=== PATIENT | female | born 1955 ===

== ENCOUNTER 2025-04-27 12:41 | Emergency (ER) | payer MEDICARE, SELFPAY ==
[2025-04-27] VITALS (47 sets, daily range): BP systolic 132–191; BP diastolic 67–127; PULSE 88–111; RESP 16–29; TEMP 36.2–37.2; O2SAT 92–100
--- NOTE | ~2025-04-27 | US_ITS ---
EXAMINATION: US venous doppler LE RT DATE: 04/27/2025 14:33 INDICATION: Right lower limb pain and swelling TECHNIQUE: Grayscale ultrasound images without and with compression and Doppler ultrasound images of the right lower extremity veins were obtained. COMPARISON: None. FINDINGS: Noncompressible thrombus is present in the right common femoral vein, profunda (deep) femoral vein, p roximal to distal femoral vein and greater saphenous vein outflow. The right popliteal vein, peroneal trunk, posterior tibial veins, peroneal veins and gastrocnemius vein are patent and compressible. IMPRESSION: 1. Extensive hwlsy-thq-hmcc deep venous thrombosis in the right lower limb involving the entire femor al vein, common femoral vein, profunda (deep) femoral vein and common femoral vein. Dr. Alonso disc ussed these findings with Dr. Brannon at 2:45 PM. Reviewed, dictated and finalized at location A. IMPRESSION: 1. Extensive aknfb-[id number]-kbkb deep venous thrombosis in the right lower limb invo lving the entire femoral vein, common femoral vein, profunda (deep) femoral vei n and common femoral vein. Dr. Alonso discussed these findings with Dr. Adrián cruz at 2:45 PM.
--- NOTE | ~2025-04-27 | CT_ITS ---
EXAMINATION: CT abdomen pelvis w con DATE: 04/27/2025 22:29 INDICATION: Assess for intra-abdominal malignancy TECHNIQUE: Computed tomography (CT) of the abdomen and pelvis was performed with 100 mL Omnipaque-350 intravenous contrast. Automated exposure control and iterative reconstruction technique were employe d. The dose-length product was 412.39 mGy-cm. COMPARISON: None FINDINGS: Discoid atelectasis in the bilateral lower lobes. Cardiomegaly with right atrial enlargement. No hermann cardial or pleural effusion. Small sliding-type hiatal hernia. Liver, gallbladder, spleen, pancreas a nd bilateral adrenal glands are normal. There is mild bilateral hydronephrosis which appears to result from obstruction along the proximal le ft and distal right ureter is resulting from heterogeneously enhancing likely malignant masses in the abdomen and pelvis. This includes and 8.3 x 5.8 x 7.6 cm retroperitoneal mass in the upper abdomen l ikely representing a conglomeration of metastatic left para-aortic and aortocaval lymph nodes. This a ppears to invade,, expands and occluded along with some additional nonenhancing likely bland thrombus the left renal vein. Likely secondary mildly delayed left nephrogram and secondary splenorenal colla teral formation. There also appears to be some extension of the mass along the left gonadal vein. In the pelvis there is enlargement of the uterus with prominent thickening of the endometrial complex wh ich measures 4.6 cm diameter suspicious for endometrial carcinoma. This appears to invade the myometr ium and extend beyond the confines of the uterus at the fundus and the posterior aspect of the uterin e body. The extra uterine or cervical mass measures approximately 9.1 x 6.8 x 4.5 cm. The transition point to the obstructing distal right ureter occurs where it encounters this mass. There is an additi onal separate enhancing mass in the right obturator region which measures 5.1 x 3.5 x 2.8 cm consiste nt with likely metastatic lymphadenopathy. This appears to compress or invade the right external christina c vein which appears to demonstrate nonenhancing central thrombus more distally. Bladder is normal. No bowel obstruction. Normal appendix. No free intraperitoneal gas or fluid. No messina spicious lytic or blastic bone lesions. IMPRESSION: 1. Constellation of findings most suggestive of endometrial carcinoma with extrauterine invasion in t he pelvis and bulky metastatic lymphadenopathy in the right hemipelvis and in the mid abdominal retro peritoneum where it appears to also invaded and occluded the left renal vein with secondary splenoren al collateral formation. 2. Mild bilateral hydronephrosis likely resulting from obstruction from the malignant masses as detai led above. 3. Thrombus within the occluded left renal vein as well as in the right external iliac vein potential ly extending more distally into the femoral veins which begins where the external iliac vein is eithe r elevated or compressed by a large right obturator lymph node. This and the above findings were disc ussed with Dr. Travis at 11:02 PM 4. Cardia megaly. 5. Small sliding-type hiatal hernia. Reviewed, dictated and finalized at location A. IMPRESSION: 1. Constellation of findings most suggestive of endometrial carcinoma with extr auterine invasion in the pelvis and bulky metastatic lymphadenopathy in the rig ht hemipelvis and in the mid abdominal retroperitoneum where it appears to also invaded and occluded the left renal vein with secondary splenorenal collateral formation. 2. Mild bilateral hydronephrosis likely resulting from obstruction from the mal ignant masses as detailed above. 3. Thrombus within the occluded left renal vein as well as in the right externa l iliac vein potentially extending more distally into the femoral veins which b egins where the external iliac vein is either elevated or compressed by a large right obturator lymph node. This and the above findings were discussed with Dr Ivana Travis at 11:02 PM 4. Cardia megaly. 5. Small sliding-type hiatal hernia.
--- NOTE | ~2025-04-27 | XR_ITS ---
EXAM/ PROCEDURE: XR ankle RT min 3V - 04/27/2025 14:32 CDT HISTORY: 70 years old Female with R ankle pain/swelling COMPARISON: None available TECHNIQUE: Four view(s) FINDINGS/ IMPRESSION: Status post ORIF of the distal tibia and fibula. Intact hardware and no loosening. Soft tissue swelli ng around the ankle without subjacent fracture. There are no dislocations.Joint space narrowing, subchondral sclerosis, subchondral cyst formation an d osteophyte formation, compatible with mild osteoarthritis. Reviewed, dictated and finalized at location A.
--- OUTSIDE RECORDS SUMMARY | 2025-04-27 12:44 | XMS_ITS | Referral Summary ---
Author Organization [facility] [address] Address [address] [place] [address] Care Team Providers Care Criminal Lawyer Name Role Phone Dat Brown MD Primary Care Provider [phone] Allergies No known active allergies Medications cholecalciferol (VITAMIN D-3) 5,000 unit capsule Take 5,000 Units by mouth daily Active vitamin E (AQUASOL E) 1,000 unit capsule Take 1,000 Units by mouth daily Patient takes 5000 daily Active vitamin B complex capsule Take 1 capsule by mouth daily Active magnesium oxide (MAG-OX) 250 mg (150.8 mg elemental) tabletIndication s:hypomagnesemia 250 mg daily Active selenium 200 mcg tablet Take by mouth Active potassium gluconate 595 mg (99 mg) tablet 595 mg Activ e memantine (NAMENDA) 10 mg tabletIndication s:Alzheimer's dementia without behavioral disturbance, unspecified timing of dementia onset TAKE 1 TABLET BY MOUTH EVERY DAY 30 tablet 5 10/31/2020 Active Active Problems No known active problems Social History Tobacco Use Types Packs/Day Years Used Date Smoking Tobacco: Never Personal Safety Answer Date Recorded Getting School Help Needed Not on file 12/17 Comments Unknown Sex and Gender Information Value Date Recorded Sex Assigned at Not on file 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
--- OUTSIDE RECORDS SUMMARY | 2025-04-27 12:44 | XMS_ITS | Clinical Summary ---
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
--- NOTE | 2025-04-27 13:35 | ED_ITS ---
HPI - Extremity Injury (Lower) General Chief Complaint: Extremity Injury, Lower <Uzma Brannon APRN - Last Filed: 04/27/25 13:39> Stated Complaint: r ankle injury <Uzma Brannon APRN - Last Filed: 04/27/25 13:39> Time Seen by Provider: 04/27/25 13:25 <Uzma Brannon APRN - Last Filed: 04/27/25 13:39> Focused HPI: Patient is a 70-year-old female who presents to the ER with right ankle and right calf pain/swelling. Her caregiver reports she has a history of multiple sclerosis and dementia, so she is a poor historian and has decreased mobility. Patient's caregiver reports she may have fractured that ankle in the past but denies any recent injury that he is aware of. Patient reports she likes to pick at her skin and she has multiple pencil eraser tip- sized scabs on her right lower extremity. She denies any recent fevers, right knee swelling, urinary symptoms, or purulence drainage from the site. GENERAL: Well-appearing, well-nourished, and in no acute distress. HEAD: Normocephalic, atraumatic. CHEST: Clear to auscultation. ?No respiratory distress. HEART: Regular rate and rhythm.? NEURO: ?Alert and oriented x3. SKIN: multiple pencil eraser tip-sized scabs on her right lower extremity, no visible drainage, + Car's sign, + edema Patient screened in triage and initial orders placed.? ?Additional care and disposition to be based upon?diagnostic testing and treatment. <Uzma Brannon APRN - Last Filed: 04/27/25 13:39> Related Data Allergies/Adverse Reactions: Allergies Allergy/AdvReac Type Severity Reaction Status Date / Time Penicillins Allergy Unknown Anaphylactic Verified 04/27/25 12:43 Shock <Uzma Brannon APRN - Last Filed: 04/27/25 13:39> PMFSH Past Medical History Medical History: Medical History (Updated 04/28/25 @ 01:08 by Kiara Travis MD) Multiple sclerosis Dementia <Uzma Brannon APRN - Last Filed: 04/27/25 13:39> Surgical History Surgical History: Surgical History (Updated 04/27/25 @ 16:08 by Pina Lao APRN) Status post ORIF of fracture of ankle <Uzma Brannon APRN - Last Filed: 04/27/25 13:39> Social History Social History: Social History Smoking status: Never smoker Alcohol intake: never <Uzma Brannon APRN - Last Filed: 04/27/25 13:39> Course Course Emergency Course: Patient signed out to me. I was notified that patient had extensive DVT in the right lower extremity. She was found to have a hemoglobin of 5.8 in received 1 unit of blood at which point her hemoglobin was 6.9 and she received a 2nd unit of blood. She is not on anticoagulation or anti-platelet therapy. She has a history of multiple sclerosis and dementia. Her had reported that she had been experiencing vaginal bleeding 3-4 days per month which he thought was potentially her menstrual cycle although she is [address] Morocho spoke with vascular surgeon as well as accepting physician as patient needs a filter. Patient has been accepted to [facility] in [facility], pending bed. Dr Morocho filled out paperwork. Given anticipated delay in receiving a bed, Dr Morocho also ordered CT abd/pelvis as well as pelvic US (presume the latter will be performed tomorrow morning if still here). I was made aware that patient had received a bed. CT Abd/pelvis was performed but not yet interpreted when EMS arrived. Radiology to push images to hospital and a disc is made by the time EMS has arrived. I did receive a phone call from the radiologist to described extensive concerns for endometrial malignancy as per below. Patient was transported to facility by EMS and I did request to speak with the hospitalist at [facility] and conveyed the findings of the CT abdomen pelvis so that the appropriate consultants (e.g. Gyne Onc, urology) could be made aware in addition to the vascular surgical team that had already been consulted. <Kiara Travis MD - Last Filed: 04/28/25 01:08> Vital Signs Vital signs: Vital Signs Temperature 97.3 F L 04/27/25 13:26 Pulse Rate 92 04/27/25 13:26 Respiratory Rate 16 04/27/25 13:26 Blood Pressure 132/67 04/27/25 13:26 Pulse Oximetry 100 04/27/25 13:26 Oxygen Delivery Room Air 04/27/25 13:26 Temperature 97.9 F 04/27/25 23:30 Pulse Rate 109 H 04/27/25 23:30 Respiratory Rate 23 H 04/27/25 23:30 Blood Pressure 185/98 H 04/27/25 23:30 Pulse Oximetry 94 04/27/25 23:30 Oxygen Delivery Room Air 04/27/25 13:26 <Uzma Brannon, STORE STANDARDS ASSOCIATE - Last Filed: 04/27/25 13:39> Vital Signs Temperature 97.3 F L 04/27/25 13:26 Pulse Rate 92 04/27/25 13:26 Respiratory Rate 16 04/27/25 13:26 Blood Pressure 132/67 04/27/25 13:26 Pulse Oximetry 100 04/27/25 13:26 Oxygen Delivery Room Air 04/27/25 13:26 Temperature 97.9 F 04/27/25 23:30 Pulse Rate 109 H 04/27/25 23:30 Respiratory Rate 23 H 04/27/25 23:30 Blood Pressure 185/98 H 04/27/25 23:30 Pulse Oximetry 94 04/27/25 23:30 Oxygen Delivery Room Air 04/27/25 13:26 <Kiara Travis MD - Last Filed: 04/28/25 01:08> MDM - Extremity Injury (Lower) Lab Data Result diagrams: 04/27/25 21:13 04/27/25 13:47 <Uzma Brannon STORE STANDARDS ASSOCIATE - Last Filed: 04/27/25 13:39> Labs: Lab Results 04/27/25 04/27/25 04/27/25 Range/Units 13:47 16:01 21:13 WBC 6.9 (4.5-10.0) K/mm3 RBC 3.73 L (4.2-5.4) M/mm3 Hgb 5.8 L* 6.9 L* (12.0-15.0) g/dL Hct 22.3 L 24.3 L (37.0-47.0) % MCV 59.8 L (80-100) fl MCH 15.5 L (26-34) pg MCHC 26.0 L (32-36) g/dl RDW 21.1 H (11.5-14.5) % Plt Count 621 H (150-375) k/mm3 MPV 8.1 (7.4-10.4) fl Immature Gran % (Auto) 0.4 (0-0.5) % Neut % (Auto) 78.7 H (45.5-73.1) % Lymph % (Auto) 13.2 L (18.3-44.2) % [place] % (Auto) 6.4 (2.6-8.5) % Eos % (Auto) 0.4 (0-4.4) % Baso % (Auto) 0.9 (0.2-1.2) % Lymph # (Auto) 0.91 (0.9-3.2) K/mm3 [place] # (Auto) 0.4 (0.1-0.6) K/mm3 Eos # (Auto) 0.0 (0-0.3) K/mm3 Baso # (Auto) 0.1 (0.0-0.1) K/mm3 Abs Immat Gran (auto) 0.03 (0.00-0.031) K/mm3 Absolute Neuts (auto) 5.4 (1.3-6.7) K/mm3 Absolute Nucleated RBC 0.000 (0.0-0.012) K/mm3 Band Neutrophils % Not Reportable Nucleated RBC % 0.0 (0.0-0.2) % Platelet Estimate Increased (Adequate) Hypochromasia 3+ Anisocytosis 2+ Target Cells 1+ Schistocytes None seen PT 13.7 (11.1-14.7) Seconds INR 1.1 APTT 35.1 (22.3-36.8) Seconds Sodium 134 L (137-145) mmol/L Potassium 3.3 L (3.4-5.0) mmol/L Chloride 100 (98-107) mmol/L Carbon Dioxide 26 (22-30) mmol/L Anion Gap 8 (4-12) mmol/L BUN 6 L (7-17) mg/dL Creatinine 0.58 L (0.7-1.0) mg/dL Estim Creat Clear Calc Not Reportable Estimated GFR > 60 (59 - ) Glucose 232 H (65-110) mg/dL Lactic Acid 2.5 H 2.4 H (0.7-2.0) mmol/L Calcium 8.5 (8.4-10.2) mg/dL Total Bilirubin 0.3 (0.2-1.3) mg/dL AST 30 (14-36) U/L ALT 14 (6-35) U/L Alkaline Phosphatase 124 (38-126) U/L Total Protein 7.9 (6.3-8.2) g/dL Albumin 3.5 (3.5-5.1) g/dL Blood Type A Positive Antibody Screen Negative Crossmatch See Detail <Uzma Brannon, STORE STANDARDS ASSOCIATE - Last Filed: 04/27/25 13:39> Lab Results 04/27/25 04/27/25 04/27/25 Range/Units 13:47 16:01 21:13 WBC 6.9 (4.5-10.0) K/mm3 RBC 3.73 L (4.2-5.4) M/mm3 Hgb 5.8 L* 6.9 L* (12.0-15.0) g/dL Hct 22.3 L 24.3 L (37.0-47.0) % MCV 59.8 L (80-100) fl MCH 15.5 L (26-34) pg MCHC 26.0 L (32-36) g/dl RDW 21.1 H (11.5-14.5) % Plt Count 621 H (150-375) k/mm3 MPV 8.1 (7.4-10.4) fl Immature Gran % (Auto) 0.4 (0-0.5) % Neut % (Auto) 78.7 H (45.5-73.1) % Lymph % (Auto) 13.2 L (18.3-44.2) % [place] % (Auto) 6.4 (2.6-8.5) % Eos % (Auto) 0.4 (0-4.4) % Baso % (Auto) 0.9 (0.2-1.2) % Lymph # (Auto) 0.91 (0.9-3.2) K/mm3 [place] # (Auto) 0.4 (0.1-0.6) K/mm3 Eos # (Auto) 0.0 (0-0.3) K/mm3 Baso # (Auto) 0.1 (0.0-0.1) K/mm3 Abs Immat Gran (auto) 0.03 (0.00-0.031) K/mm3 Absolute Neuts (auto) 5.4 (1.3-6.7) K/mm3 Absolute Nucleated RBC 0.000 (0.0-0.012) K/mm3 Band Neutrophils % Not Reportable Nucleated RBC % 0.0 (0.0-0.2) % Platelet Estimate Increased (Adequate) Hypochromasia 3+ Anisocytosis 2+ Target Cells 1+ Schistocytes None seen PT 13.7 (11.1-14.7) Seconds INR 1.1 APTT 35.1 (22.3-36.8) Seconds Sodium 134 L (137-145) mmol/L Potassium 3.3 L (3.4-5.0) mmol/L Chloride 100 (98-107) mmol/L Carbon Dioxide 26 (22-30) mmol/L Anion Gap 8 (4-12) mmol/L BUN 6 L (7-17) mg/dL Creatinine 0.58 L (0.7-1.0) mg/dL Estim Creat Clear Calc Not Reportable Estimated GFR > 60 (59 - ) Glucose 232 H (65-110) mg/dL Lactic Acid 2.5 H 2.4 H (0.7-2.0) mmol/L Calcium 8.5 (8.4-10.2) mg/dL Total Bilirubin 0.3 (0.2-1.3) mg/dL AST 30 (14-36) U/L ALT 14 (6-35) U/L Alkaline Phosphatase 124 (38-126) U/L Total Protein 7.9 (6.3-8.2) g/dL Albumin 3.5 (3.5-5.1) g/dL Blood Type A Positive Antibody Screen Negative Crossmatch See Detail <Kiara Travis MD - Last Filed: 04/28/25 01:08> Imaging Data Radiologist's impression: Impressions Venous Doppler Study 04/27/25 14:43 IMPRESSION: 1. Extensive [id number] deep venous thrombosis in the right lower limb involving the entire femoral vein, common femoral vein, profunda (deep) femoral vein and common femoral vein. Dr. Alonso discussed these findings with Dr. Brannon at 2:45 PM. Abdomen/Pelvis CT 04/27/25 22:43 IMPRESSION: 1. Constellation of findings most suggestive of endometrial carcinoma with extrauterine invasion in the pelvis and bulky metastatic lymphadenopathy in the right hemipelvis and in the mid abdominal retroperitoneum where it appears to also invaded and occluded the left renal vein with secondary splenorenal collateral formation. 2. Mild bilateral hydronephrosis likely resulting from obstruction from the malignant masses as detailed above. 3. Thrombus within the occluded left renal vein as well as in the right external iliac vein potentially extending more distally into the femoral veins which begins where the external iliac vein is either elevated or compressed by a large right obturator lymph node. This and the above findings were discussed with Dr. Travis at 11:02 PM 4. Cardia megaly. 5. Small sliding-type hiatal hernia. <Kiara Travis MD - Last Filed: 04/28/25 01:08> Discharge Plan Discharge Clinical Impression: Acute deep vein thrombosis (DVT) of right lower extremity, Anemia, Endometrial carcinoma, Bilateral hydronephrosis, Blood transfusion during current hospitalization <Uzma Brannon APRN - Last Filed: 04/27/25 13:39> Patient Disposition: Acute Care Hospital <Uzma Brannon APRN - Last Filed: 04/27/25 13:39> Condition: Stable <Uzma Brannon APRN - Last Filed: 04/27/25 13:39> Patient Language: Sinhala <Uzma Brannon APRN - Last Filed: 04/27/25 13:39> Follow-up/Referrals: Jeanna Lim, NITIN [Primary Care Provider] - <Uzma Brannon APRN - Last Filed: 04/27/25 13:39>
[2025-04-27 13:57] LABS: Hematocrit 22.3 % (37.0-47.0); Immature Granulocyte Percent A 0.4 % (0-0.5); Lymphocytes Absolute Auto 0.91 K/mm3 (0.9-3.2); Mean Corpuscular HGB Conc 26.0 g/dl (32-36); Mean Corpuscular Hemoglobin 15.5 pg (26-34); Mean Corpuscular Volume 59.8 fl (80-100); Nucleated Red Blood Cells Absolute Auto 0.000 K/mm3 (0.0-0.012); Nucleated Red Blood Cells Perc 0.0 % (0.0-0.2); Platelet Count Result 621 k/mm3 (150-375); Red Blood Count 3.73 M/mm3 (4.2-5.4); White Blood Count 6.9 K/mm3 (4.5-10.0)
[2025-04-27 14:02] LABS: Hemoglobin 5.8 g/dL (12.0-15.0)
[2025-04-27 14:18] LABS: Anisocytosis 2+; Hypochromasia 3+; Schistocytes None Seen; Target Cells 1+
[2025-04-27 14:21] LABS: Alanine Aminotransferase 14 U/L (6-35); Albumin Level 3.5 g/dL (3.5-5.1); Alkaline Phosphatase 124 U/L (38-126); Anion Gap 8 mmol/L (4-12); Aspartate Amino Transferase 30 U/L (14-36); Bilirubin,Total 0.3 mg/dL (0.2-1.3); Blood Urea Nitrogen 6 mg/dL (7-17); Calcium 8.5 mg/dL (8.4-10.2); Carbon Dioxide 26 mmol/L (22-30); Chloride 100 mmol/L (98-107); Estimated Glomerular Filt Rate > 60; Glucose 232 mg/dL (65-110); Potassium 3.3 mmol/L (3.4-5.0); Sodium 134 mmol/L (137-145); Total Protein 7.9 g/dL (6.3-8.2)
--- NOTE | 2025-04-27 15:04 | ED_ITS ---
HPI - Extremity Injury (Lower) General Chief Complaint: Extremity Injury, Lower Stated Complaint: r ankle injury Time Seen by Provider: 04/27/25 13:25 Source: patient History of Present Illness HPI Narrative: Patient is 70 years old came to the ED with pain, swelling of the right lower extremity few days ago. History of MS for the last 50 years, uses a walker, been falling a lot lately, dementia Related Data Allergies Allergy/AdvReac Type Severity Reaction Status Date / Time Penicillins Allergy Unknown Anaphylactic Verified 04/27/25 12:43 Shock Review of Systems 2 Review of Systems: ROS unobtainable: Yes unobtainable due to mental status PMFSH Past Medical History Medical History (Updated 04/29/25 @ 00:00 by Mendel Burgess) Multiple sclerosis Dementia Surgical History Surgical History (Updated 04/27/25 @ 16:08 by Pina Lao, NITIN) Status post ORIF of fracture of ankle Social History Social History Smoking status: Never smoker Alcohol intake: never Exam 2 Narrative: General appearance: Well-developed, well-nourished Skin: Normal color Head: Normocephalic, nontraumatic Eyes: Clear conjunctiva ENT: Oropharynx normal, ears normal, nose normal Neck: Supple, nontender Chest and respiratory: Airway patent, no respiratory distress, no accessory muscle use Heart: Regular rate/rhythm Abdomen: Soft, nontender, no organomegaly, quiet bowel sounds, guaiac negative Pelvic exam showed no blood in the vaginal pouch Vascular: Normal peripheral pulses, normal capillary refill. Musculoskeletal: Right lower extremity showed diffuse tenderness, 2+ edema, scattered bruises Neurologic: Alert and oriented to her name only Course Consultations Consultation #1: Pnia, hospitalist nurse-practitioner believes that patient cannot be taking care of at this hospital. Date: 04/27/25 Consultation #2: DR FIGUEROA, VASCULAR SURGEON AT [facility] WHO ACCEPTED PATIENT TRANSFER Date: 04/27/25 Time: 16:57 Consultation #3: DR CHENG, HOSPITALIST AT [facility], WOULD LIKE TO SEE IMPROVEMENT OF THE HEMOGLOBIN LEVEL AFTER BLOOD TRANSFUSION BEFORE ACCEPTING PATIENT TRANSFER. Date: 04/27/25 Time: 17:04 Additional Consultation(s): DR MERLOS, HOSPITALIST AT [facility], ACCEPTED PATIENT TRANSFER, WAITING FOR A BED Vital Signs Vital signs: Vital Signs Temperature 36.3 C L 04/27/25 13:26 Pulse Rate 92 04/27/25 13:26 Respiratory Rate 16 04/27/25 13:26 Blood Pressure 132/67 04/27/25 13:26 Pulse Oximetry 100 04/27/25 13:26 Oxygen Delivery Room Air 04/27/25 13:26 Temperature 36.6 C 04/27/25 23:30 Pulse Rate 109 H 04/27/25 23:30 Respiratory Rate 23 H 04/27/25 23:30 Blood Pressure 185/98 H 04/27/25 23:30 Pulse Oximetry 94 04/27/25 23:30 Oxygen Delivery Room Air 04/27/25 13:26 MDM - Extremity Injury (Lower) MDM Narrative Medical decision making narrative: Patient came with right lower extremity swelling and pain Venous Doppler right lower extremity today showed extensive above the knee deep vein thrombosis in the right lower extremity involving the entire femoral vein, common femoral vein, profound the femoral vein and common femoral vein. Patient is not on any blood thinner at this time BLOOD WORKUP TODAY SHOWED HEMOGLOBIN OF 5.8, MCV 59.8, PLATELET 621 ANTICOAGULANT MEDICATION CANNOT BE STARTED AT THIS TIME. INFERIOR VENA CAVA FILTER PLACEMENT IS MY RECOMMENDATION, HOSPITALIST NURSE-PRACTITIONER PREFERRED TO TRANSFER PATIENT TO ANOTHER FACILITY FOR VASCULAR SURGERY CONSULT PATIENT IS ACCEPTED TO BE TRANSFERRED TO [facility] DISCUSSED WITH THE VASCULAR SURGEON DR. FIGUEROA, THE HOSPITALIST . WAITING FOR A BED. PATIENT CARE TURNED OVER TO DR. PIMENTEL AT SHIFT CHANGE, AWAITING IMAGING, DISPOSITION. PATIENT BEEN RESTING QUIETLY IN THE EMERGENCY ROOM WITHOUT ANY ISSUES OR PROBLEMS. Because of the delay of transferred to another facility, CT abdomen and pelvis with IV contrast ordered to rule out the possibility of intra-abdominal malignancy Pelvic ultrasound order to rule out intrauterine malignancy Differential Diagnosis Differential diagnosis: Likely other ( as above) Medical Records Attestation: I reviewed the patient's medical records. Lab Data Attestation: I reviewed the patient's lab results. 04/27/25 21:13 04/27/25 13:47 Labs: Lab Results 04/27/25 04/27/25 04/27/25 Range/Units 13:47 16:01 21:13 WBC 6.9 (4.5-10.0) K/mm3 RBC 3.73 L (4.2-5.4) M/mm3 Hgb 5.8 L* 6.9 L* (12.0-15.0) g/dL Hct 22.3 L 24.3 L (37.0-47.0) % MCV 59.8 L (80-100) fl MCH 15.5 L (26-34) pg MCHC 26.0 L (32-36) g/dl RDW 21.1 H (11.5-14.5) % Plt Count 621 H (150-375) k/mm3 MPV 8.1 (7.4-10.4) fl Immature Gran % (Auto) 0.4 (0-0.5) % Neut % (Auto) 78.7 H (45.5-73.1) % Lymph % (Auto) 13.2 L (18.3-44.2) % [place] % (Auto) 6.4 (2.6-8.5) % Eos % (Auto) 0.4 (0-4.4) % Baso % (Auto) 0.9 (0.2-1.2) % Lymph # (Auto) 0.91 (0.9-3.2) K/mm3 [place] # (Auto) 0.4 (0.1-0.6) K/mm3 Eos # (Auto) 0.0 (0-0.3) K/mm3 Baso # (Auto) 0.1 (0.0-0.1) K/mm3 Abs Immat Gran (auto) 0.03 (0.00-0.031) K/mm3 Absolute Neuts (auto) 5.4 (1.3-6.7) K/mm3 Absolute Nucleated RBC 0.000 (0.0-0.012) K/mm3 Band Neutrophils % Not Reportable Nucleated RBC % 0.0 (0.0-0.2) % Platelet Estimate Increased (Adequate) Hypochromasia 3+ Anisocytosis 2+ Target Cells 1+ Schistocytes None seen PT 13.7 (11.1-14.7) Seconds INR 1.1 APTT 35.1 (22.3-36.8) Seconds Sodium 134 L (137-145) mmol/L Potassium 3.3 L (3.4-5.0) mmol/L Chloride 100 (98-107) mmol/L Carbon Dioxide 26 (22-30) mmol/L Anion Gap 8 (4-12) mmol/L BUN 6 L (7-17) mg/dL Creatinine 0.58 L (0.7-1.0) mg/dL Estim Creat Clear Calc Not Reportable Estimated GFR > 60 (59 - ) Glucose 232 H (65-110) mg/dL Lactic Acid 2.5 H 2.4 H (0.7-2.0) mmol/L Calcium 8.5 (8.4-10.2) mg/dL Total Bilirubin 0.3 (0.2-1.3) mg/dL AST 30 (14-36) U/L ALT 14 (6-35) U/L Alkaline Phosphatase 124 (38-126) U/L Total Protein 7.9 (6.3-8.2) g/dL Albumin 3.5 (3.5-5.1) g/dL Blood Type A Positive Antibody Screen Negative Crossmatch See Detail Imaging Data Radiologist's impression: Impressions Venous Doppler Study 04/27/25 14:43 IMPRESSION: 1. Extensive [id number] deep venous thrombosis in the right lower limb involving the entire femoral vein, common femoral vein, profunda (deep) femoral vein and common femoral vein. Dr. Alonso discussed these findings with Dr. Brannon at 2:45 PM. Critical Care Time Critical Care Time Critical Care Time: Yes Total Critical Care Time: 30 Discharge Plan Discharge Clinical Impression: Acute deep vein thrombosis (DVT) of right lower extremity, Anemia, Endometrial carcinoma, Bilateral hydronephrosis, Blood transfusion during current hospitalization Patient Disposition: Acute Care Hospital Condition: Stable Patient Language: Chadian Follow-up/Referrals: Jeanna Lim, NITIN [Primary Care Provider] -
[2025-04-27 15:18] LABS: INR 1.1; Partial Thromboplastin Time 35.1 Seconds (22.3-36.8); Prothrombin Time 13.7 Seconds (11.1-14.7)
--- OUTSIDE RECORDS SUMMARY | 2025-04-27 15:32 | XMS_ITS | Referral Summary ---
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
--- OUTSIDE RECORDS SUMMARY | 2025-04-27 15:32 | XMS_ITS | Clinical Summary ---
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
--- NOTE | 2025-04-27 16:01 | PC.NURSE ---
per Dr Morocho - hold heparin d/t hemoglobin level.
--- NOTE | 2025-04-27 16:03 | PM.IMHP ---
H&P: HPI History of Present Illness Date/Time: 04/27/25 16:03 Chief Complaint: Right lower extremity pain and swelling Narrative: 70-year-old female history of MS and dementia presents to the hospital with right lower extremity pain and swelling. Lab work in the ED shows hemoglobin of 5.8, sodium 134, potassium of 3.3, BUN of 6, creatinine of 0.58, glucose of 232, lactic acid of 2.5, venous Doppler shows extensive [id number]-vhz-yeyg deep venous thrombosis in the right lower limb involving the entire femoral vein, common femoral vein, profunda (deep) femoral vein and common femoral vein. 2 units RBCs and heparin drip for for the patient. Review of Systems Review of Systems: ROS unobtainable: Yes unobtainable due to mental status PMFSH Past Medical History Medical History (Updated 04/27/25 @ 16:11 by Pina Lao APRN) Multiple sclerosis Dementia Surgical History Surgical History (Updated 04/27/25 @ 16:08 by Pina Lao APRN) Status post ORIF of fracture of ankle Social History Social History Smoking status: Never smoker Alcohol intake: never Meds Home Medications and Allergies Allergies Allergy/AdvReac Type Severity Reaction Status Date / Time Penicillins Allergy Unknown Anaphylactic Verified 04/27/25 12:43 Shock Vital Signs Vital Signs - 24 hr 04/27/25 13:26 Temperature 97.3 F L Pulse Rate 92 Respiratory Rate 16 Blood Pressure 132/67 Pulse Oximetry 100 Oxygen Delivery Room Air Exam Narrative: General: well appearing, appears stated age. HEENT: normocephalic, atraumatic. Mucous membranes moist. EOMI, PERRLA, bilateral sclera anicteric, no conjunctival injection. Neck supple without JVD, lymphadenopathy, or bruit. Respiratory: clear to ascultation bilaterally. No rales/rhonic/wheezes. Cardiovascular: Regular rate and rhythm, normal S1-S2 upon ascultation. No murmurs, rubs, or clicks. PMI is nondisplaced, capillary refill less than 3 second. Abdomen: Soft, round, no pulsatile masses, nondistended and nontender. No rebound, no guarding. No CVA tenderness, no hepatosplenomegaly. Bowel sounds present to all four quadrants. No high pitch or tinkling sounds, resonant to percussion. Extremities: No cyanosis, clubbing, or edema present. Pulses are palpable 2/2. Right lower extremity Neuro: Alert and orientated x 4. PERRLA. Cranial nerves 2-12 intact without focal deficit. Skin: Warm, dry, and intact, without rash, erythema, or lesion. Psych: pleasant, cooperative, normal speech, normal affect, no hallucinations, no dysarthia H&P: Results Labs Labs: Short CBC 04/27/25 Range/Units 13:47 WBC 6.9 (4.5-10.0) K/mm3 Hgb 5.8 L* (12.0-15.0) g/dL Hct 22.3 L (37.0-47.0) % Plt Count 621 H (150-375) k/mm3 BMP 04/27/25 13:47 Sodium 134 L Potassium 3.3 L Chloride 100 Carbon Dioxide 26 BUN 6 L Creatinine 0.58 L Glucose 232 H Calcium 8.5 Liver Function 04/27/25 Range/Units 13:47 Total Bilirubin 0.3 (0.2-1.3) mg/dL AST 30 (14-36) U/L ALT 14 (6-35) U/L Alkaline Phosphatase 124 (38-126) U/L Albumin 3.5 (3.5-5.1) g/dL Assessment and Plan Assessment and plan (1) Acute deep vein thrombosis (DVT) of right lower extremity: Code(s): I82.401 - Acute embolism and thrombosis of unspecified deep veins of right lower extremity Status: Acute Assessment and Plan: Heparin drip per protocol (2) Anemia: Code(s): D64.9 - Anemia, unspecified Status: Acute Assessment and Plan: 5.8 on admission Transfuse 2 units RBCs H&H q.6 Transfuse for hemoglobin less than 7 or symptomatic (3) Multiple sclerosis: Code(s): G35 - Multiple sclerosis Status: Acute (4) Dementia: Code(s): F03.90 - Unspecified dementia, unspecified severity, without behavioral disturbance, psychotic disturbance, mood disturbance, and anxiety Status: Acute (5) Hypertension: Code(s): I10 - Essential (primary) hypertension Status: Acute Assessment and Plan: Hydralazine p.r.n.
--- NOTE | 2025-04-27 17:54 | PC.NURSE ---
verbal phone consent recieved by Alvin Lee- patients sibling along with Yen Mendoza RN.
[2025-04-27] MEDS: SODIUM CHLORIDE 0.9% IV 250 ML 30 ML IV CONT (18:46)
[2025-04-27 21:16] LABS: Hematocrit 24.3 % (37.0-47.0)
[2025-04-27 21:26] LABS: Hemoglobin 6.9 g/dL (12.0-15.0)
--- NOTE | 2025-04-27 22:24 | PC.NURSE ---
Sade RN @ [facility] on [address] Pt accepting information: [facility] [address] [place] [address] Gomes Diagnosis : Right Leg DVT RN to RN Report : [phone] attache # [phone]
--- NOTE | 2025-04-27 22:38 | PC.NURSE ---
bed changed to 367
--- NOTE | 2025-04-27 23:14 | PC.NURSE ---
2nd unit of blood transfusion started with ZANE Frank prior to transfer of Pt.
[2025-04-27] MEDS: TUBING, BLOOD SET 1 EACH XX (23:19)
[2025-04-27] MEDS: SODIUM CHLORIDE 0.9% IV 250 ML 100 ML (23:20)
--- NOTE | 2025-04-27 23:20 | PC.NURSE ---
blood transfusing at time of transfer.
--- NOTE | 2025-05-01 20:14 | PC.NURSE ---
blood transfusion started 04/27/2025 @ 2314. VS Saved, but co-sign and start did not save
== END 2025-04-27 23:32 | disposition short-term general hospital (02) ==
PROVIDERS: Emergency Medicine; Registered Nurse; Emergency Provider Student in an Organized Health Care Education/Training Program; PCP Nurse Practitioner Family
DX: I82.411 Acute embolism and thrombosis of right femoral vein (principal); D64.9 Anemia, unspecified; C54.1 Malignant neoplasm of endometrium; N13.30 Unspecified hydronephrosis; G35 Multiple sclerosis; F03.90 Unspecified dementia, unspecified severity, without behavioral disturbance, psychotic disturbance, mood disturbance, and anxiety
CPT/HCPCS: 36415; 36430; 73610; 74177; 80053; 83605; 85014; 85018; 85025; 85610; 85730; 86850; 86900; 86901; 86923; 93971; 96361; 96374; 96375; 99285; J7050; P9016; Q9967

== ENCOUNTER 2025-06-27 03:27 | Emergency (ER) | payer MEDICARE, SELFPAY ==
[2025-06-27] VITALS (98 sets, daily range): BP systolic 83–158; BP diastolic 41–105; PULSE 96–115; RESP 9–30; TEMP 33.3–37.3; O2SAT 84–100
--- NOTE | ~2025-06-27 | XR_ITS ---
Examination: XR chest 1V portable Clinical History: gurgling Comparison: 11/14/2018 Technique: Portable AP Findings: Right chest Mediport. Heart size normal. Large left effusion, associated basilar opacity. No acute bony abnormality. IMPRESSION: 1. Large left pleural effusion, with associated basilar atelectasis and/or airspace disease. Reviewed, dictated and finalized at location R. IMPRESSION: 1. Large left pleural effusion, with associated basilar atelectasis and/or air space disease.
--- NOTE | ~2025-06-27 | CT_ITS ---
CT HEAD NON-CONTRAST Clinical History: AMS Comparison: None Technique: Unenhanced axial images skull base to vertex Coronal, sagittal reformats CT images acquired with automatic exposure control for dose reduction DLP: 757 mGy-cm Findings: Mild global atrophy. White matter changes, typically chronic microvascular ischemic disease Sulci, ventricles: Ventricles dilated out of proportion to sulci. No intracerebral hemorrhage. No evidence acute territorial infarct. No mass effect, midline shift. Bony calvarium intact. Visualized paranasal sinuses: Ethmoid disease. Mastoid air cells: Clear. IMPRESSION: 1. No acute intracranial findings. 2. Ventriculomegaly. Normal pressure hydrocephalus not excluded. Reviewed, dictated and finalized at location R.
--- NOTE | ~2025-06-27 | XR_ITS ---
Abdominal radiograph(s) INDICATION: OG tube COMPARISON: CT abdomen pelvis 04/27/2025 TECHNIQUE: Portable supine AP abdomen FINDINGS: NG tube within gastric body. Gaseous gastric distention. Scattered colonic gas and stool. Mild scattered small bowel gas. No abnormal abdominal calcifications. No acute bony abnormality. IMPRESSION: 1. NG tube within stomach. Reviewed, dictated and finalized at location . IMPRESSION: 1. NG tube within stomach.
--- NOTE | ~2025-06-27 | XR_ITS ---
Examination: XR chest ET placement Clinical History: ET TUE PLACEMENT Comparison: 1 hour prior Technique: Portable AP Findings: ET tube tip at nic. NG tube. Right chest Mediport. Heart size unchanged. Worsening diffuse airspace opacities. Large left effusion persists. No acute bony abnormality. IMPRESSION: 1. ET tube tip at nic. 2. Developing pulmonary edema and/or multifocal airspace disease. 3. Persistent large left pleural effusion. Reviewed, dictated and finalized at location R.
--- NOTE | ~2025-06-27 | XR_ITS ---
Examination: XR chest ET placement Clinical History: ET TUBE REPOSISITIONED Comparison: Minutes prior Technique: Portable AP Findings: ET tube tip above nic. Right chest Mediport. Heart size unchanged. Left pleural effusion with associated basilar opacity. No acute bony abnormality. IMPRESSION: 1. ET tube tip above nic. 2. No cardiopulmonary change. Reviewed, dictated and finalized at location R.
--- NOTE | ~2025-06-27 | CT_ITS ---
EXAMINATION: CTA chest PE abdomen pel DATE: 06/27/2025 06:49 INDICATION: Gastrointestinal hemorrhage. TECHNIQUE: Computed tomography angiography (CTA) of the chest was performed with 100 mL Omnipaque-350 intravenous contrast timed to evaluate the pulmonary arteries. Coronal maximum intensity projection 3D-reconstructions were created by the technologist. Computed tomography (CT) of the abdomen and pelvis was performed with intravenous contrast. Automated exposure control and iterative reconstruction technique were employed. The dose-length product was 685.34 mGy-cm. COMPARISON: CT abdomen and pelvis 04/27/2025 FINDINGS: CTA chest: There are small right and moderate-sized left pleural effusions. There is atelectasis bilaterally with a dependent predominance. There is smooth septal thickening in the lungs, consistent with pulmonary edema. Cardiomegaly is noted. No pericardial effusion. There are pulmonary emboli in the lower lobes. The endotracheal tube tip is in expected position. There is a right internal jugular port with tip in superior vena cava. The nasogastric tube tip is in the stomach. There is moderate thoracic spondylosis. There are chronic compression fractures of T6 and T7. CT abdomen and pelvis: The liver is normal. There is a gallstone in the gallbladder, which is normal in size. Calcifications in the spleen are consistent with old granulomatous disease. The pancreas and right adrenal gland are normal. There is moderate right hydronephrosis and hydroureter. There is mil d left hydronephrosis. There is a 11.9 x 9.3 cm mass involving the endometrium with extrauterine spread. There is right external iliac lymphadenopathy. There is confluent aortocaval and left para-aortic lymphadenopathy. For example, a left para-aortic jean-paul mass measures 7.4 x 6.0 cm. Left para-aortic lymphadenopathy involves the left adrenal gland and hilum of the left kidney. There is a small volume of ascites. There is edema of the body wall and intra- abdominal fat. There is a left groin catheter with tip in left external iliac vein. There is deep vein thrombosis in right common femoral vein. There is a mass with rim calcifications and rim enhancement in the left hip adductor muscles, likely a subacute hematoma. There are chronic compression fractures of L1 and L2. There are lytic lesions in L2 and S2. IMPRESSION: 1. Acute pulmonary emboli in the lower lobes. Deep vein thrombosis in right common femoral vein. 2. Mild pulmonary edema. 3. Small right and moderate-sized left pleural effusions. 4. Large endometrial mass, abdominal and retroperitoneal lymphadenopathy with involvement of left adrenal gland and hilum of left kidney, and bone lesions, consistent with endometrial carcinoma and metastatic disease. 5. Moderate right hydronephrosis and hydroureter and mild left hydronephrosis secondary to metastatic disease. 6. Mass with rim calcifications and rim enhancement in the left hip adductor muscles, likely a subcutaneous hematoma. Reviewed, dictated and finalized at location E. IMPRESSION: 1. Acute pulmonary emboli in the lower lobes. Deep vein thrombosis in right com mon femoral vein. 2. Mild pulmonary edema. 3. Small right and moderate-sized left pleural effusions. 4. Large endometrial mass, abdominal and retroperitoneal lymphadenopathy with i nvolvement of left adrenal gland and hilum of left kidney, and bone lesions, co nsistent with endometrial carcinoma and metastatic disease. 5. Moderate right hydronephrosis and hydroureter and mild left hydronephrosis s econdary to metastatic disease. 6. Mass with rim calcifications and rim enhancement in the left hip adductor mu scles, likely a subcutaneous hematoma.
--- NOTE | 2025-06-27 03:28 | ECG_ITS ---
Test Date: 2025-06-27 04:09:28 Measurements Intervals [place] Rate: 105 P: 79 SC: 124 QRS: 23 QRSD: 83 T: 0 QT: 358 QTc: 473 Interpretive Statements SINUS TACHYCARDIA NONSPECIFIC T-WAVE ABNORMALITY BORDERLINE ECG No previous ECG available for comparison Electronically Signed On 06-27-2025 07:37:12 CDT by Scar Pleitez M.D.
--- NOTE | 2025-06-27 03:35 | PC.NURSE ---
pt audibly gurgling, brother to bedside. Pt full code.
--- NOTE | 2025-06-27 03:52 | PC.NURSE ---
pt arrived with wounds to right [place]eg[place], left hip, and right lower thigh.
[2025-06-27 03:54] LABS: Immature Granulocyte Percent A 3.2 % (0-0.5); Lymphocytes Absolute Auto 1.79 K/mm3 (0.9-3.2); Mean Corpuscular HGB Conc 28.7 g/dl (32-36); Mean Corpuscular Hemoglobin 21.4 pg (26-34); Mean Corpuscular Volume 74.6 fl (80-100); Nucleated Red Blood Cells Absolute Auto 0.100 K/mm3 (0.0-0.012); Nucleated Red Blood Cells Perc 3.2 % (0.0-0.2); Platelet Count Result 450 k/mm3 (150-375); Red Blood Count 2.80 M/mm3 (4.2-5.4); White Blood Count 3.2 K/mm3 (4.5-10.0)
[2025-06-27 03:57] LABS: Alveolar/Arterial O2 Gradient 240.2 mmHg; Carboxyhemoglobin 1.0 % THb (0-2.0); Fractional Inspired Oxygen 50 %; HCO3 ABG 18.7 mEq/l (22.0-26.0); Methemoglobin ABG 0.9 %THb (0-1.5); Oxygen Content ABG 7.5 %vol (16.0-22.0); Oxygen Saturation ABG 90.7 % (95.0-100.0); PCO2 ABG 43.0 mmHg (35.0-45.0); PO2 ABG 67.9 mmHg (80.0-100.0); PO2 FiO2 Ratio Arterial Blood 1.36 %; Reduced Hemoglobin 12.3 %THb (0-5.0)
[2025-06-27 04:02] LABS: Liters per Minute 15.0 LPM; Modified Allen's Test Pass; Site Drawn RIGHT RADIAL
[2025-06-27 04:07] LABS: INR 1.4; Prothrombin Time 17.5 Seconds (11.1-14.7)
[2025-06-27 04:08] LABS: Partial Thromboplastin Time 41.8 Seconds (22.3-36.8)
[2025-06-27 04:13] LABS: Alanine Aminotransferase 24 U/L (6-35); Albumin Level 2.7 g/dL (3.5-5.1); Alkaline Phosphatase 143 U/L (38-126); Anion Gap 11 mmol/L (4-12); Aspartate Amino Transferase 22 U/L (14-36); Bilirubin,Total 0.3 mg/dL (0.2-1.3); Blood Urea Nitrogen 26 mg/dL (7-17); Calcium 8.1 mg/dL (8.4-10.2); Carbon Dioxide 22 mmol/L (22-30); Chloride 95 mmol/L (98-107); Estimated CRCL calculation 62 ml/min; Estimated Glomerular Filt Rate > 60; Glucose 353 mg/dL (65-110); Magnesium 1.9 mg/dL (1.6-2.3); Potassium 4.2 mmol/L (3.4-5.0); Sodium 128 mmol/L (137-145); Total Protein 5.8 g/dL (6.3-8.2)
[2025-06-27 04:21] LABS: CRP 16.5 mg/dL (<1.0); NT Pro B Type Natriuretic Pept 2650 pg/mL (19.9-100)
[2025-06-27] MEDS: NOREPINEPHRINE 8 MG/D5W 250 ML 8 MG/250 ML BAG 9.38 MG IV CONT (04:22)
[2025-06-27] MEDS: HYDROCORTISONE SODIUM SUCCINATE 100 MG/2 ML VIAL IV PUSH (04:23)
[2025-06-27 04:29] LABS: Hematocrit 20.9 % (37.0-47.0); Hemoglobin 6.0 g/dL (12.0-15.0)
[2025-06-27 04:31] LABS: Anisocytosis 1+; Hypochromasia 2+; Poikilocytosis 1+
[2025-06-27 04:32] LABS: Ovalocytes 1+; Schistocytes None Seen; Target Cells Occasional
[2025-06-27] MEDS: PANTOPRAZOLE SODIUM IV 40 MG VIAL 80 MG IV PUSH (04:44)
[2025-06-27 04:45] LABS: Influenza A QL RT-PCR Negative (Negative); Influenza B QL RT-PCR Negative (Negative); RSV RNA, RT-PCR Negative (Negative); SARS-CoV-2 RNA PCR Negative (Negative)
--- NOTE | 2025-06-27 04:48 | PC.NURSE ---
pt as temperature Rico in. pt core temperature was 93.0F
[2025-06-27] MEDS: FENTANYL 2,500MCG/NS250ML(*CRX 2,500 MCG/250 ML BAG (04:56)
[2025-06-27] MEDS: RAPID SEQUENCE INTUBATION KIT 1 EACH (04:59)
[2025-06-27] MEDS: LACTATED RINGERS 1,000 ML 999 ML IV CONT ×3 (05:00)
--- NOTE | 2025-06-27 05:10 | PC.NURSE ---
etomidate given at 0426 succinylcholine given at 0427 intubation tube is 25 at the lip OG tube is 62 at the teeth
[2025-06-27 05:14] LABS: Alveolar/Arterial O2 Gradient 476.9 mmHg; Carboxyhemoglobin 1.6 % THb (0-2.0); Fractional Inspired Oxygen 100 %; HCO3 ABG 21.9 mEq/l (22.0-26.0); Methemoglobin ABG 0.8 %THb (0-1.5); Oxygen Content ABG 8.1 %vol (16.0-22.0); Oxygen Saturation ABG 98.9 % (95.0-100.0); PCO2 ABG 55.3 mmHg (35.0-45.0); PO2 ABG 180.8 mmHg (80.0-100.0); PO2 FiO2 Ratio Arterial Blood 1.81 %; Reduced Hemoglobin 0.8 %THb (0-5.0)
[2025-06-27 05:18] LABS: Arterial Blood Gas Ventilator rate 20 /MIN; Modified Allen's Test Pass; Site Drawn RIGHT RADIAL
[2025-06-27 05:19] LABS: Arterial Blood Gas Tidal Volume 400 ml
[2025-06-27] MEDS: levoFLOXacin 750 MG/D5W 150 ML 750 MG/150 ML BAG 100 MG IVPB (05:28)
[2025-06-27 05:38] LABS: Add Urine Microscopic? YES; Appearance Urine Turbid (Clear); Glucose Urine UA Negative (Negative); Leukocyte Esterase Ur 3+ LEU/UL (Negative); Need Manual Microscopic Reviewed; Nitrate Urine Negative (Negative); Non Pathogenic Casts >20; Specific Grav Ur 1.015 (1.001-1.035)
--- NOTE | 2025-06-27 06:05 | PC.NURSE ---
Per EDP to do 2 PRBC at the same time. pt hemoglobin 5.6 per ABG.
--- NOTE | 2025-06-27 06:19 | ED.AMS ---
HPI - Altered Mental Status General Chief Complaint: Altered Mental Status <Davis Salazar MD - Last Filed: 06/28/25 05:27> Stated Complaint: AMS <Davis Salazar MD - Last Filed: 06/28/25 05:27> Time Seen by Provider: 06/27/25 04:59 <Davis Salazar MD - Last Filed: 06/28/25 05:27> History of Present Illness HPI narrative: 70-year-old female with a past medical history including dementia multiple sclerosis with recent workup for ongoing endometrial malignancy that she is getting active chemotherapy and treatments for at the [facility] most recently [facility] last month. 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 Her family member cleaning her brothers providing the majority of collateral formation is patient presents in respiratory extremis and altered mental status. Noted to be profoundly hypotensive, hypothermic, hypoxic. Placed into room 2 for evaluation and resuscitation immediately. Patient is full code per family. Patient not able to provide history or meaningful ROS given mental status and physical presentation. <Davis Salazar MD - Last Filed: 06/28/25 05:27> Related Data Home Medications: Home Medications ?Medication ?Instructions ?Recorded ?Confirmed ?Last Taken ?Type acetaminophen 325 mg capsule 325 mg PO Q6H PRN 05/14/25 05/14/25 Unknown History apixaban 5 mg tablet (Eliquis) 5 mg PO BID 05/14/25 05/14/25 Unknown History ferrous sulfate 325 mg (65 mg 325 mg PO DAILY 05/14/25 05/14/25 Unknown History iron) tablet <Davis Salazar MD - Last Filed: 06/28/25 05:27> Allergies/Adverse Reactions: Allergies Allergy/AdvReac Type Severity Reaction Status Date / Time Penicillins Allergy Unknown Anaphylactic Verified 06/27/25 03:28 Shock <Davis Salazar MD - Last Filed: 06/28/25 05:27> Review of Systems Review of Systems: ROS unobtainable: Yes unobtainable due to endotracheal tube, unobtainable due to medical condition and unobtainable due to mental status <Davis Salazar MD - Last Filed: 06/28/25 05:27> [facility] Past Medical History Medical History: Medical History Multiple sclerosis Dementia <Davis Salazar MD - Last Filed: 06/28/25 05:27> Surgical History Surgical History: Surgical History Status post ORIF of fracture of ankle <Davis Salazar MD - Last Filed: 06/28/25 05:27> Family History Family History: Family History Father Pancreatic cancer <Davis Salazar MD - Last Filed: 06/28/25 05:27> Social History Social History: Social History Smoking status: Never smoker Alcohol intake: never Substance use: never <Davis Salazar MD - Last Filed: 06/28/25 05:27> Exam Narrative: GENERAL: Respiratory extremis, gurgling sonorous respirations, not alert or oriented HEAD: Normocephalic, atraumatic, cachectic in appearance EYES: Pupils are 3 mm and reactive, extraocular movements intact and tracking ENT: Nares clear, no rhinorrhea or epistaxis. Mucous membranes moist with coffee-ground emesis noted in her posterior oropharynx NECK: Supple. CHEST: Coarse breath sounds bilaterally, mild tachypnea HEART: Tachycardic rate, regular rhythm ABDOMEN: [Soft, nondistended], [nontender], [No rigidity or guarding] EXTREMITIES: Normal range of motion. [No edema.] SKIN: Some skin breakdown over the bilateral thighs but no signs of cellulitis NEURO: GCS 7. Withdrawing from pain, no verbal response, eyes opening to pain. <Davis Salazar MD - Last Filed: 06/28/25 05:27> Course Course Emergency Course: I assumed care of this patient at shift change with pending CT and disposition. Did re-examine the patient no interval change in physical or in condition. Did get the CT report showed bilateral lower segment PE. Discussed with Dr. Serna regarding GI bleed. He discussed with Dr. Slater , pt needs higher level of care for cath directed thrombolysis . Discussed with wood hacker Dr. Godoy at [facility] accept the pt in Transfer to ICU <Quintin Espinosa MD - Last Filed: 06/27/25 09:30> Vital Signs Vital signs: Vital Signs Pulse Rate 104 H 06/27/25 03:34 Oxygen Delivery Room Air 06/27/25 03:34 Temperature 37.3 C 06/27/25 10:46 Pulse Rate 100 06/27/25 11:00 Respiratory Rate 20 06/27/25 11:00 Blood Pressure 127/67 06/27/25 10:46 Pulse Oximetry 98 06/27/25 10:46 Oxygen Delivery Mechanical Ventilation 06/27/25 08:14 Oxygen Flow Rate 15 06/27/25 04:15 Fraction of Inspired Oxygen 100 06/27/25 08:14 <Davis Salazar MD - Last Filed: 06/28/25 05:27> Vital Signs Pulse Rate 104 H 06/27/25 03:34 Oxygen Delivery Room Air 06/27/25 03:34 Temperature 37.3 C 06/27/25 10:46 Pulse Rate 100 06/27/25 11:00 Respiratory Rate 20 06/27/25 11:00 Blood Pressure 127/67 06/27/25 10:46 Pulse Oximetry 98 06/27/25 10:46 Oxygen Delivery Mechanical Ventilation 06/27/25 08:14 Oxygen Flow Rate 15 06/27/25 04:15 Fraction of Inspired Oxygen 100 06/27/25 08:14 <Quintin Espinosa MD - Last Filed: 06/27/25 09:30> Procedures Central Line Placement Left Femoral: Central Line Date: 06/27/25 <Davis Salazar MD - Last Filed: 06/28/25 05:27> Central Line Time: 05:45 <Davis Salazar MD - Last Filed: 06/28/25 05:27> Performed Emergently - Given emergent patient condition, temporal constraints may have precluded informed consent.: Yes <Davis Salazar MD - Last Filed: 06/28/25 05:27> Time Out Performed: Yes <Davis Salazar MD - Last Filed: 06/28/25 05:27> Patient Placed on Monitor/Pulse Ox: Yes <Davis Salazar MD - Last Filed: 06/28/25 05:27> Max. Sterile Barrier Technique: Caps, large sterile sheet and hand hygiene <Davis Salazar MD - Last Filed: 06/28/25 05:27> Central Line Prep: 2% chlorhexidine scrub and sterile drapes applied <Davis Salazar MD - Last Filed: 06/28/25 05:27> Technique: US-Guided <Davis Salazar MD - Last Filed: 06/28/25 05:27> Local Anesthetic: none <Davis Salazar MD - Last Filed: 06/28/25 05:27> Ultrasound Used for Placement: Yes <Davis Salazar MD - Last Filed: 06/28/25 05:27> Central Line Lumen Inserted: triple <Davis Salazar MD - Last Filed: 06/28/25 05:27> Post Procedure: sutured in place, good blood return, all ports aspirated, flushed, capped and sterile dressing applied <Davis Salazar MD - Last Filed: 06/28/25 05:27> Patient Tolerated Procedure: well and no complications <Davis Salazar MD - Last Filed: 06/28/25 05:27> Complications: none <Davis Salazar MD - Last Filed: 06/28/25 05:27> Intubation Intubation #1: Intubation Date: 06/27/25 <Davis Salazar MD - Last Filed: 06/28/25 05:27> Intubation Time: 04:10 <Davis Salazar MD - Last Filed: 06/28/25 05:27> Time out performed: Yes <Davis Salazar MD - Last Filed: 06/28/25 05:27> sedative: Etomidate <Davis Salazar MD - Last Filed: 06/28/25 05:27> Mg Given: 10 <Davis Salazar MD - Last Filed: 06/28/25 05:27> paralytic: Rocuronium <Davis Salazar MD - Last Filed: 06/28/25 05:27> Mg Given: 100 <Davis Salazar MD - Last Filed: 06/28/25 05:27> Laryngoscope: fiber optic video scope <Davis Salazar MD - Last Filed: 06/28/25 05:27> Tube Size (cm): 7.5 <Davis Salazar MD - Last Filed: 06/28/25 05:27> Method of Intubation: orotracheal <Davis Salazar MD - Last Filed: 06/28/25 05:27> Number of Attempts: 1 <Davis Salazar MD - Last Filed: 06/28/25 05:27> Tube Secured Depth (cm): 23 <Davis Salazar MD - Last Filed: 06/28/25 05:27> Tube Secured Location: lips <Davis Salazar MD - Last Filed: 06/28/25 05:27> Tube Placement Confirmation: visualized tube passing through cords, equal breath sounds bilaterally, no breath sounds over epigastrium and confirmation by capnometry <Davis Salazar MD - Last Filed: 06/28/25 05:27> Patient Tolerated Procedure: well and no complications <Davis Salazar MD - Last Filed: 06/28/25 05:27> Intubation Complications: none <Davis Salazar MD - Last Filed: 06/28/25 05:27> MDM - Altered Mental Status MDM Narrative Medical decision making narrative: 70-year-old female with a past medical history including dementia multiple sclerosis with recent workup for ongoing endometrial malignancy that she is getting active chemotherapy and treatments for at the [facility] most recently [facility] last month. 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 Her family member cleaning her brothers providing the majority of collateral formation is patient presents in respiratory extremis and altered mental status. Noted to be profoundly hypotensive, hypothermic, hypoxic. Placed into room 2 for evaluation and resuscitation immediately. Patient is full code per family. Patient not able to provide history or meaningful ROS given mental status and physical presentation. Patient appears in profound shock profound hypothermia. Given her ongoing chemotherapy and potential for severe sepsis as source versus hemorrhagic shock given her recent GI bleeding and Eliquis use differential remains broad but mental status likely a component of infection, bleeding, metastatic disease or cancer. Patient given immediate shock dose steroids given the profound hypothermia and hypotension wall greater than 30 cc/kg fluid bolus initiated with pressure bags and peripheral norepinephrine running to augment her blood pressures for appropriate stabilization and endotracheal intubation. Patient intubated and central line and without difficulty. She had copious amounts of coffee-ground emesis in her posterior oropharynx and suctioned out via NG tube after appropriate positioning on x-ray. Started on Protonix and given a 2 unit packed red blood cell transfusion after ABG shows hemoglobin of 5.6. Blood pressure has improved after fluids and norepinephrine. Central line obtained and CT scans of the head chest abdomen pelvis was ordered. Patient care signed over to morning physician pending results of CT scans and admission to the ICU versus transfer to [facility] system for continuity of care based on results and stability for transfer. Patient re-evaluated after interventions and had improvement in blood pressure on norepinephrine 7.5 mcg at this time. Sedated with fentanyl drip. Increase her vent settings for her acidosis likely combination of lactic acidosis and respiratory acidosis. Remains on broad coverage antibiotics at this time. <Davis Salazar MD - Last Filed: 06/28/25 05:27> Medical Records Attestation: I reviewed the patient's medical records. <Davis Salazar MD - Last Filed: 06/28/25 05:27> Lab Data Attestation: I reviewed the patient's lab results. <Davis Salazar MD - Last Filed: 06/28/25 05:27> Result diagrams: 06/27/25 03:44 06/27/25 03:44 <Davis Salazar MD - Last Filed: 06/28/25 05:27> Labs: Lab Results 06/27/25 06/27/25 06/27/25 Range/Units 03:36 03:44 03:46 WBC 3.2 L (4.5-10.0) K/mm3 RBC 2.80 L (4.2-5.4) M/mm3 Hgb 6.0 L* (12.0-15.0) g/dL Hct 20.9 L* (37.0-47.0) % MCV 74.6 L (80-100) fl MCH 21.4 L (26-34) pg MCHC 28.7 L (32-36) g/dl RDW 27.2 H (11.5-14.5) % Plt Count 450 H (150-375) k/mm3 MPV 9.5 (7.4-10.4) fl Immature Gran % (Auto) 3.2 H (0-0.5) % Neut % (Auto) 24.2 L (45.5-73.1) % Lymph % (Auto) 56.8 H (18.3-44.2) % [place] % (Auto) 14.9 H (2.6-8.5) % Eos % (Auto) 0.6 (0-4.4) % Baso % (Auto) 0.3 (0.2-1.2) % Lymph # (Auto) 1.79 (0.9-3.2) K/mm3 [place] # (Auto) 0.5 (0.1-0.6) K/mm3 Eos # (Auto) 0.0 (0-0.3) K/mm3 Baso # (Auto) 0.0 (0.0-0.1) K/mm3 Abs Immat Gran (auto) 0.10 H (0.00-0.031) K/mm3 Absolute Neuts (auto) 0.8 L (1.3-6.7) K/mm3 Absolute Nucleated RBC 0.100 H (0.0-0.012) K/mm3 Band Neutrophils % Not Reportable Nucleated RBC % 3.2 H (0.0-0.2) % Nucleated RBCs 1 % Platelet Estimate Increased (Adequate) Hypochromasia 2+ Poikilocytosis 1+ Anisocytosis 1+ Target Cells Occasional Ovalocytes 1+ Schistocytes None seen PT 17.5 H (11.1-14.7) Seconds INR 1.4 APTT 41.8 H (22.3-36.8) Seconds Methemoglobin 0.9 (0-1.5) %THb Minute Volume Vent Mode Tidal Volume ml PEEP cmH2O Peak Inspir Pressure Pressure Support Sodium 128 L (137-145) mmol/L Potassium 4.2 (3.4-5.0) mmol/L Chloride 95 L (98-107) mmol/L Carbon Dioxide 22 (22-30) mmol/L Anion Gap 11 (4-12) mmol/L BUN 26 H D (7-17) mg/dL Creatinine 0.61 L (0.7-1.0) mg/dL Estim Creat Clear Calc 62 ml/min Estimated GFR > 60 (59 - ) Glucose 353 H (65-110) mg/dL POC Capillary Glucose 274 H (65-105) mg/dl Lactic Acid 5.1 H* (0.7-2.0) mmol/L Calcium 8.1 L (8.4-10.2) mg/dL Magnesium 1.9 (1.6-2.3) mg/dL Total Bilirubin 0.3 (0.2-1.3) mg/dL AST 22 (14-36) U/L ALT 24 (6-35) U/L Alkaline Phosphatase 143 H (38-126) U/L C-Reactive Protein 16.5 H (<1.0) mg/dL NT-Pro-B Natriuret Pep 2650 H (19.9-100) pg/mL Total Protein 5.8 L (6.3-8.2) g/dL Albumin 2.7 L (3.5-5.1) g/dL Urine Color (Yellow) Urine Appearance (Clear) Urine pH (5.0-9.0) Ur Specific [place] (1.001-1.035) Urine Protein (Negative) mg/dL Urine Glucose (UA) (Negative) mg/dL Urine Ketones (Negative) mg/dL Ur Blood (Man) (Negative) Urine Nitrate (Negative) Urine Bilirubin (Negative) Urine Urobilinogen (<2.0) mg/dL Add Ur Microanalysis Leukocyte Esterase Rfl (Negative) AL/UL Urine RBC (0-2) /hpf Urine WBC (0-3) /hpf Ur Squamous Epith Cells (Few) /hpf Urine Bacteria /hpf Urine Casts Hyaline Casts (None) /lpf Nasal MRSA (PCR) (NOT DETECTE) Influenza A (RT-PCR) (Negative) Influenza B (RT-PCR) (Negative) RSV (RT-PCR) (Negative) SARS-CoV-2 RNA (RT-PCR) (Negative) Blood Type A Positive Antibody Screen Negative Crossmatch See Detail 06/27/25 06/27/25 06/27/25 Range/Units 03:59 04:59 05:14 WBC (4.5-10.0) K/mm3 RBC (4.2-5.4) M/mm3 Hgb (12.0-15.0) g/dL Hct (37.0-47.0) % MCV (80-100) fl MCH (26-34) pg MCHC (32-36) g/dl RDW (11.5-14.5) % Plt Count (150-375) k/mm3 MPV (7.4-10.4) fl Immature Gran % (Auto) (0-0.5) % Neut % (Auto) (45.5-73.1) % Lymph % (Auto) (18.3-44.2) % [place] % (Auto) (2.6-8.5) % Eos % (Auto) (0-4.4) % Baso % (Auto) (0.2-1.2) % Lymph # (Auto) (0.9-3.2) K/mm3 [place] # (Auto) (0.1-0.6) K/mm3 Eos # (Auto) (0-0.3) K/mm3 Baso # (Auto) (0.0-0.1) K/mm3 Abs Immat Gran (auto) (0.00-0.031) K/mm3 Absolute Neuts (auto) (1.3-6.7) K/mm3 Absolute Nucleated RBC (0.0-0.012) K/mm3 Band Neutrophils % Nucleated RBC % (0.0-0.2) % Nucleated RBCs % Platelet Estimate (Adequate) Hypochromasia Poikilocytosis Anisocytosis Target Cells Ovalocytes Schistocytes PT (11.1-14.7) Seconds INR APTT (22.3-36.8) Seconds Methemoglobin 0.8 (0-1.5) %THb Minute Volume Not Reportable Vent Mode Cmv Tidal Volume 400 ml PEEP 5 cmH2O Peak Inspir Pressure Not Reportable Pressure Support Not Reportable Sodium (137-145) mmol/L Potassium (3.4-5.0) mmol/L Chloride (98-107) mmol/L Carbon Dioxide (22-30) mmol/L Anion Gap (4-12) mmol/L BUN (7-17) mg/dL Creatinine (0.7-1.0) mg/dL Estim Creat Clear Calc ml/min Estimated GFR (59 - ) Glucose (65-110) mg/dL POC Capillary Glucose (65-105) mg/dl Lactic Acid (0.7-2.0) mmol/L Calcium (8.4-10.2) mg/dL Magnesium (1.6-2.3) mg/dL Total Bilirubin (0.2-1.3) mg/dL AST (14-36) U/L ALT (6-35) U/L Alkaline Phosphatase (38-126) U/L C-Reactive Protein (<1.0) mg/dL NT-Pro-B Natriuret Pep (19.9-100) pg/mL Total Protein (6.3-8.2) g/dL Albumin (3.5-5.1) g/dL Urine Color Yellow (Yellow) Urine Appearance Turbid H (Clear) Urine pH 7.5 (5.0-9.0) Ur Specific [place] 1.015 (1.001-1.035) Urine Protein 3+ H (Negative) mg/dL Urine Glucose (UA) Negative (Negative) mg/dL Urine Ketones Negative (Negative) mg/dL Ur Blood (Man) 3+ H (Negative) Urine Nitrate Negative (Negative) Urine Bilirubin Negative (Negative) Urine Urobilinogen 1.0 (<2.0) mg/dL Add Ur Microanalysis Reviewed Leukocyte Esterase Rfl 3+ H (Negative) AL/UL Urine RBC >100 H (0-2) /hpf Urine WBC >100 H (0-3) /hpf Ur Squamous Epith Cells Occasional (Few) /hpf Urine Bacteria 4+ H /hpf Urine Casts >20 Hyaline Casts Present (None) /lpf Nasal MRSA (PCR) Not detected (NOT DETECTE) Influenza A (RT-PCR) Negative (Negative) Influenza B (RT-PCR) Negative (Negative) RSV (RT-PCR) Negative (Negative) SARS-CoV-2 RNA (RT-PCR) Negative (Negative) Blood Type Antibody Screen Crossmatch 06/27/25 Range/Units 06:13 WBC (4.5-10.0) K/mm3 RBC (4.2-5.4) M/mm3 Hgb (12.0-15.0) g/dL Hct (37.0-47.0) % MCV (80-100) fl MCH (26-34) pg MCHC (32-36) g/dl RDW (11.5-14.5) % Plt Count (150-375) k/mm3 MPV (7.4-10.4) fl Immature Gran % (Auto) (0-0.5) % Neut % (Auto) (45.5-73.1) % Lymph % (Auto) (18.3-44.2) % [place] % (Auto) (2.6-8.5) % Eos % (Auto) (0-4.4) % Baso % (Auto) (0.2-1.2) % Lymph # (Auto) (0.9-3.2) K/mm3 [place] # (Auto) (0.1-0.6) K/mm3 Eos # (Auto) (0-0.3) K/mm3 Baso # (Auto) (0.0-0.1) K/mm3 Abs Immat Gran (auto) (0.00-0.031) K/mm3 Absolute Neuts (auto) (1.3-6.7) K/mm3 Absolute Nucleated RBC (0.0-0.012) K/mm3 Band Neutrophils % Nucleated RBC % (0.0-0.2) % Nucleated RBCs % Platelet Estimate (Adequate) Hypochromasia Poikilocytosis Anisocytosis Target Cells Ovalocytes Schistocytes PT (11.1-14.7) Seconds INR APTT (22.3-36.8) Seconds Methemoglobin (0-1.5) %THb Minute Volume Vent Mode Tidal Volume ml PEEP cmH2O Peak Inspir Pressure Pressure Support Sodium (137-145) mmol/L Potassium (3.4-5.0) mmol/L Chloride (98-107) mmol/L Carbon Dioxide (22-30) mmol/L Anion Gap (4-12) mmol/L BUN (7-17) mg/dL Creatinine (0.7-1.0) mg/dL Estim Creat Clear Calc ml/min Estimated GFR (59 - ) Glucose (65-110) mg/dL POC Capillary Glucose (65-105) mg/dl Lactic Acid 3.9 H (0.7-2.0) mmol/L Calcium (8.4-10.2) mg/dL Magnesium (1.6-2.3) mg/dL Total Bilirubin (0.2-1.3) mg/dL AST (14-36) U/L ALT (6-35) U/L Alkaline Phosphatase (38-126) U/L C-Reactive Protein (<1.0) mg/dL NT-Pro-B Natriuret Pep (19.9-100) pg/mL Total Protein (6.3-8.2) g/dL Albumin (3.5-5.1) g/dL Urine Color (Yellow) Urine Appearance (Clear) Urine pH (5.0-9.0) Ur Specific [place] (1.001-1.035) Urine Protein (Negative) mg/dL Urine Glucose (UA) (Negative) mg/dL Urine Ketones (Negative) mg/dL Ur Blood (Man) (Negative) Urine Nitrate (Negative) Urine Bilirubin (Negative) Urine Urobilinogen (<2.0) mg/dL Add Ur Microanalysis Leukocyte Esterase Rfl (Negative) AL/UL Urine RBC (0-2) /hpf Urine WBC (0-3) /hpf Ur Squamous Epith Cells (Few) /hpf Urine Bacteria /hpf Urine Casts Hyaline Casts (None) /lpf Nasal MRSA (PCR) (NOT DETECTE) Influenza A (RT-PCR) (Negative) Influenza B (RT-PCR) (Negative) RSV (RT-PCR) (Negative) SARS-CoV-2 RNA (RT-PCR) (Negative) Blood Type Antibody Screen Crossmatch <Davis Salazar MD - Last Filed: 06/28/25 05:27> Lab Results 06/27/25 06/27/25 06/27/25 Range/Units 03:36 03:44 03:46 WBC 3.2 L (4.5-10.0) K/mm3 RBC 2.80 L (4.2-5.4) M/mm3 Hgb 6.0 L* (12.0-15.0) g/dL Hct 20.9 L* (37.0-47.0) % MCV 74.6 L (80-100) fl MCH 21.4 L (26-34) pg MCHC 28.7 L (32-36) g/dl RDW 27.2 H (11.5-14.5) % Plt Count 450 H (150-375) k/mm3 MPV 9.5 (7.4-10.4) fl Immature Gran % (Auto) 3.2 H (0-0.5) % Neut % (Auto) 24.2 L (45.5-73.1) % Lymph % (Auto) 56.8 H (18.3-44.2) % [place] % (Auto) 14.9 H (2.6-8.5) % Eos % (Auto) 0.6 (0-4.4) % Baso % (Auto) 0.3 (0.2-1.2) % Lymph # (Auto) 1.79 (0.9-3.2) K/mm3 [place] # (Auto) 0.5 (0.1-0.6) K/mm3 Eos # (Auto) 0.0 (0-0.3) K/mm3 Baso # (Auto) 0.0 (0.0-0.1) K/mm3 Abs Immat Gran (auto) 0.10 H (0.00-0.031) K/mm3 Absolute Neuts (auto) 0.8 L (1.3-6.7) K/mm3 Absolute Nucleated RBC 0.100 H (0.0-0.012) K/mm3 Band Neutrophils % Not Reportable Nucleated RBC % 3.2 H (0.0-0.2) % Nucleated RBCs 1 % Platelet Estimate Increased (Adequate) Hypochromasia 2+ Poikilocytosis 1+ Anisocytosis 1+ Target Cells Occasional Ovalocytes 1+ Schistocytes None seen PT 17.5 H (11.1-14.7) Seconds INR 1.4 APTT 41.8 H (22.3-36.8) Seconds Methemoglobin 0.9 (0-1.5) %THb Minute Volume Vent Mode Tidal Volume ml PEEP cmH2O Peak Inspir Pressure Pressure Support Sodium 128 L (137-145) mmol/L Potassium 4.2 (3.4-5.0) mmol/L Chloride 95 L (98-107) mmol/L Carbon Dioxide 22 (22-30) mmol/L Anion Gap 11 (4-12) mmol/L BUN 26 H D (7-17) mg/dL Creatinine 0.61 L (0.7-1.0) mg/dL Estim Creat Clear Calc 62 ml/min Estimated GFR > 60 (59 - ) Glucose 353 H (65-110) mg/dL POC Capillary Glucose 274 H (65-105) mg/dl Lactic Acid 5.1 H* (0.7-2.0) mmol/L Calcium 8.1 L (8.4-10.2) mg/dL Magnesium 1.9 (1.6-2.3) mg/dL Total Bilirubin 0.3 (0.2-1.3) mg/dL AST 22 (14-36) U/L ALT 24 (6-35) U/L Alkaline Phosphatase 143 H (38-126) U/L C-Reactive Protein 16.5 H (<1.0) mg/dL NT-Pro-B Natriuret Pep 2650 H (19.9-100) pg/mL Total Protein 5.8 L (6.3-8.2) g/dL Albumin 2.7 L (3.5-5.1) g/dL Urine Color (Yellow) Urine Appearance (Clear) Urine pH (5.0-9.0) Ur Specific [place] (1.001-1.035) Urine Protein (Negative) mg/dL Urine Glucose (UA) (Negative) mg/dL Urine Ketones (Negative) mg/dL Ur Blood (Man) (Negative) Urine Nitrate (Negative) Urine Bilirubin (Negative) Urine Urobilinogen (<2.0) mg/dL Add Ur Microanalysis Leukocyte Esterase Rfl (Negative) AL/UL Urine RBC (0-2) /hpf Urine WBC (0-3) /hpf Ur Squamous Epith Cells (Few) /hpf Urine Bacteria /hpf Urine Casts Hyaline Casts (None) /lpf Nasal MRSA (PCR) (NOT DETECTE) Influenza A (RT-PCR) (Negative) Influenza B (RT-PCR) (Negative) RSV (RT-PCR) (Negative) SARS-CoV-2 RNA (RT-PCR) (Negative) Blood Type A Positive Antibody Screen Negative Crossmatch See Detail 06/27/25 06/27/25 06/27/25 Range/Units 03:59 04:59 05:14 WBC (4.5-10.0) K/mm3 RBC (4.2-5.4) M/mm3 Hgb (12.0-15.0) g/dL Hct (37.0-47.0) % MCV (80-100) fl MCH (26-34) pg MCHC (32-36) g/dl RDW (11.5-14.5) % Plt Count (150-375) k/mm3 MPV (7.4-10.4) fl Immature Gran % (Auto) (0-0.5) % Neut % (Auto) (45.5-73.1) % Lymph % (Auto) (18.3-44.2) % [place] % (Auto) (2.6-8.5) % Eos % (Auto) (0-4.4) % Baso % (Auto) (0.2-1.2) % Lymph # (Auto) (0.9-3.2) K/mm3 [place] # (Auto) (0.1-0.6) K/mm3 Eos # (Auto) (0-0.3) K/mm3 Baso # (Auto) (0.0-0.1) K/mm3 Abs Immat Gran (auto) (0.00-0.031) K/mm3 Absolute Neuts (auto) (1.3-6.7) K/mm3 Absolute Nucleated RBC (0.0-0.012) K/mm3 Band Neutrophils % Nucleated RBC % (0.0-0.2) % Nucleated RBCs % Platelet Estimate (Adequate) Hypochromasia Poikilocytosis Anisocytosis Target Cells Ovalocytes Schistocytes PT (11.1-14.7) Seconds INR APTT (22.3-36.8) Seconds Methemoglobin 0.8 (0-1.5) %THb Minute Volume Not Reportable Vent Mode Cmv Tidal Volume 400 ml PEEP 5 cmH2O Peak Inspir Pressure Not Reportable Pressure Support Not Reportable Sodium (137-145) mmol/L Potassium (3.4-5.0) mmol/L Chloride (98-107) mmol/L Carbon Dioxide (22-30) mmol/L Anion Gap (4-12) mmol/L BUN (7-17) mg/dL Creatinine (0.7-1.0) mg/dL Estim Creat Clear Calc ml/min Estimated GFR (59 - ) Glucose (65-110) mg/dL POC Capillary Glucose (65-105) mg/dl Lactic Acid (0.7-2.0) mmol/L Calcium (8.4-10.2) mg/dL Magnesium (1.6-2.3) mg/dL Total Bilirubin (0.2-1.3) mg/dL AST (14-36) U/L ALT (6-35) U/L Alkaline Phosphatase (38-126) U/L C-Reactive Protein (<1.0) mg/dL NT-Pro-B Natriuret Pep (19.9-100) pg/mL Total Protein (6.3-8.2) g/dL Albumin (3.5-5.1) g/dL Urine Color Yellow (Yellow) Urine Appearance Turbid H (Clear) Urine pH 7.5 (5.0-9.0) Ur Specific [place] 1.015 (1.001-1.035) Urine Protein 3+ H (Negative) mg/dL Urine Glucose (UA) Negative (Negative) mg/dL Urine Ketones Negative (Negative) mg/dL Ur Blood (Man) 3+ H (Negative) Urine Nitrate Negative (Negative) Urine Bilirubin Negative (Negative) Urine Urobilinogen 1.0 (<2.0) mg/dL Add Ur Microanalysis Reviewed Leukocyte Esterase Rfl 3+ H (Negative) AL/UL Urine RBC >100 H (0-2) /hpf Urine WBC >100 H (0-3) /hpf Ur Squamous Epith Cells Occasional (Few) /hpf Urine Bacteria 4+ H /hpf Urine Casts >20 Hyaline Casts Present (None) /lpf Nasal MRSA (PCR) Not detected (NOT DETECTE) Influenza A (RT-PCR) Negative (Negative) Influenza B (RT-PCR) Negative (Negative) RSV (RT-PCR) Negative (Negative) SARS-CoV-2 RNA (RT-PCR) Negative (Negative) Blood Type Antibody Screen Crossmatch 06/27/25 Range/Units 06:13 WBC (4.5-10.0) K/mm3 RBC (4.2-5.4) M/mm3 Hgb (12.0-15.0) g/dL Hct (37.0-47.0) % MCV (80-100) fl MCH (26-34) pg MCHC (32-36) g/dl RDW (11.5-14.5) % Plt Count (150-375) k/mm3 MPV (7.4-10.4) fl Immature Gran % (Auto) (0-0.5) % Neut % (Auto) (45.5-73.1) % Lymph % (Auto) (18.3-44.2) % [place] % (Auto) (2.6-8.5) % Eos % (Auto) (0-4.4) % Baso % (Auto) (0.2-1.2) % Lymph # (Auto) (0.9-3.2) K/mm3 [place] # (Auto) (0.1-0.6) K/mm3 Eos # (Auto) (0-0.3) K/mm3 Baso # (Auto) (0.0-0.1) K/mm3 Abs Immat Gran (auto) (0.00-0.031) K/mm3 Absolute Neuts (auto) (1.3-6.7) K/mm3 Absolute Nucleated RBC (0.0-0.012) K/mm3 Band Neutrophils % Nucleated RBC % (0.0-0.2) % Nucleated RBCs % Platelet Estimate (Adequate) Hypochromasia Poikilocytosis Anisocytosis Target Cells Ovalocytes Schistocytes PT (11.1-14.7) Seconds INR APTT (22.3-36.8) Seconds Methemoglobin (0-1.5) %THb Minute Volume Vent Mode Tidal Volume ml PEEP cmH2O Peak Inspir Pressure Pressure Support Sodium (137-145) mmol/L Potassium (3.4-5.0) mmol/L Chloride (98-107) mmol/L Carbon Dioxide (22-30) mmol/L Anion Gap (4-12) mmol/L BUN (7-17) mg/dL Creatinine (0.7-1.0) mg/dL Estim Creat Clear Calc ml/min Estimated GFR (59 - ) Glucose (65-110) mg/dL POC Capillary Glucose (65-105) mg/dl Lactic Acid 3.9 H (0.7-2.0) mmol/L Calcium (8.4-10.2) mg/dL Magnesium (1.6-2.3) mg/dL Total Bilirubin (0.2-1.3) mg/dL AST (14-36) U/L ALT (6-35) U/L Alkaline Phosphatase (38-126) U/L C-Reactive Protein (<1.0) mg/dL NT-Pro-B Natriuret Pep (19.9-100) pg/mL Total Protein (6.3-8.2) g/dL Albumin (3.5-5.1) g/dL Urine Color (Yellow) Urine Appearance (Clear) Urine pH (5.0-9.0) Ur Specific [place] (1.001-1.035) Urine Protein (Negative) mg/dL Urine Glucose (UA) (Negative) mg/dL Urine Ketones (Negative) mg/dL Ur Blood (Man) (Negative) Urine Nitrate (Negative) Urine Bilirubin (Negative) Urine Urobilinogen (<2.0) mg/dL Add Ur Microanalysis Leukocyte Esterase Rfl (Negative) AL/UL Urine RBC (0-2) /hpf Urine WBC (0-3) /hpf Ur Squamous Epith Cells (Few) /hpf Urine Bacteria /hpf Urine Casts Hyaline Casts (None) /lpf Nasal MRSA (PCR) (NOT DETECTE) Influenza A (RT-PCR) (Negative) Influenza B (RT-PCR) (Negative) RSV (RT-PCR) (Negative) SARS-CoV-2 RNA (RT-PCR) (Negative) Blood Type Antibody Screen Crossmatch <Quintin Espinosa MD - Last Filed: 06/27/25 09:30> ABG Data ABG results: 06/27/25 06/27/25 03:46 04:59 Puncture Site Right radial Right radial ABG pH 7.256 L* 7.216 L* ABG pCO2 43.0 55.3 H ABG pO2 67.9 L 180.8 H ABG PO2/FiO2 Ratio 1.36 1.81 ABG HCO3 18.7 L 21.9 L ABG O2 Saturation 90.7 L 98.9 ABG O2 Content 7.5 L 8.1 L ABG Base Excess -7.8 -5.3 A-a Gradient 240.2 476.9 Oxyhemoglobin 85.8 L* 96.8 Carboxyhemoglobin 1.0 1.6 Reduced Hemoglobin 12.3 H 0.8 Total Hemoglobin 6.1 L* 5.6 L* O2 Delivery Device Non-rebreather mask Ventilator O2 Liters/Min 15.0 Not Reportable Vent Rate 20 FiO2 50 100 <Davis Salazar MD - Last Filed: 06/28/25 05:27> 06/27/25 06/27/25 03:46 04:59 Puncture Site Right radial Right radial ABG pH 7.256 L* 7.216 L* ABG pCO2 43.0 55.3 H ABG pO2 67.9 L 180.8 H ABG PO2/FiO2 Ratio 1.36 1.81 ABG HCO3 18.7 L 21.9 L ABG O2 Saturation 90.7 L 98.9 ABG O2 Content 7.5 L 8.1 L ABG Base Excess -7.8 -5.3 A-a Gradient 240.2 476.9 Oxyhemoglobin 85.8 L* 96.8 Carboxyhemoglobin 1.0 1.6 Reduced Hemoglobin 12.3 H 0.8 Total Hemoglobin 6.1 L* 5.6 L* O2 Delivery Device Non-rebreather mask Ventilator O2 Liters/Min 15.0 Not Reportable Vent Rate 20 FiO2 50 100 <Quintin Espinosa MD - Last Filed: 06/27/25 09:30> Attestation: I personally reviewed and interpreted this ABG as follows: <Davis Salazar MD - Last Filed: 06/28/25 05:27> Interpretation: Metabolic acidosis with a pH is 7.2, component of respiratory acidosis with a pCO2 of 55. Chest event settings to hyperventilate the patient at this time for assistance with her oxygenation and ventilation status. <Davis Salazar MD - Last Filed: 06/28/25 05:27> Critical Care Time Critical Care Time Critical Care Time: Yes <Davis Salazar MD - Last Filed: 06/28/25 05:27> Total Critical Care Time: 105 (Critical care time is exclusive of any separately billable procedures above.) <Davis Salazar MD - Last Filed: 06/28/25 05:27> Discharge Plan Discharge Clinical Impression: Shock circulatory, Respiratory failure requiring intubation, ABLA (acute blood loss anemia), History of deep vein thrombosis, History of endometrial cancer, Septic shock, Hypothermia, Bilateral pulmonary embolism <Davis Salazar MD - Last Filed: 06/28/25 05:27> Patient Disposition: Acute Care Hospital <Davis Salazar MD - Last Filed: 06/28/25 05:27> Condition: Critical <Davis Salazar MD - Last Filed: 06/28/25 05:27> Patient Language: Argentine <Davis Salazar MD - Last Filed: 06/28/25 05:27> Prescriptions: No Action ferrous sulfate 325 mg (65 mg iron) tablet 325 mg PO DAILY Eliquis 5 mg tablet 5 mg PO BID acetaminophen 325 mg capsule 325 mg PO Q6H PRN <Davis Salazar MD - Last Filed: 06/28/25 05:27> Follow-up/Referrals: Jeanna Lim, MGMT SPECIALIST [Primary Care Provider, [facility]] <Davis Salazar MD - Last Filed: 06/28/25 05:27> Time of Disposition: 09:28 <Davis Salazar MD - Last Filed: 06/28/25 05:27> 09:28 <Quintin Espinosa MD - Last Filed: 06/27/25 09:30>
[2025-06-27 06:30] LABS: MRSA (PCR) NOT DETECTED (NOT DETECTE)
[2025-06-27] MEDS: SODIUM CHLORIDE 0.9% IV 250 ML 30 ML IV CONT (07:21)
[2025-06-27] MEDS: TUBING, BLOOD SET 1 EACH XX ×2 (07:21)
[2025-06-27] MEDS: SODIUM CHLORIDE 0.9% IV 250 ML 500 ML (07:22)
--- NOTE | 2025-06-27 07:29 | PC.NURSE ---
BSR completed with Nhung DEGROOT. patient intubated and sedated. Family member had no questions, endorsed a history of cancer undergoing current chemo treatment.
[2025-06-27] MEDS: VANCOMYCIN 1,250 MG/NS 250 ML 1,250 MG/250 ML BAG 166.67 MG IVPB (07:39)
[2025-06-27] MEDS: SCOPOLAMINE 1 MG PATCH 1 PATCH TRANSDERM (09:09)
[2025-06-27] MEDS: metroNIDAZOLE 500 MG/ISO 100ML 500 MG/100 ML BAG 100 MG IVPB (09:18)
== END 2025-06-27 11:03 | disposition short-term general hospital (02) ==
PROVIDERS: Physician Assistant; Student in an Organized Health Care Education/Training Program; Emergency Provider Family Medicine; PCP Nurse Practitioner Family
DX: A41.9 Sepsis, unspecified organism (principal); R65.21 Severe sepsis with septic shock; I26.99 Other pulmonary embolism without acute cor pulmonale; J96.90 Respiratory failure, unspecified, unspecified whether with hypoxia or hypercapnia; D62 Acute posthemorrhagic anemia; C54.1 Malignant neoplasm of endometrium; R68.0 Hypothermia, not associated with low environmental temperature; Z86.718 Personal history of other venous thrombosis and embolism; G35 Multiple sclerosis; F03.90 Unspecified dementia, unspecified severity, without behavioral disturbance, psychotic disturbance, mood disturbance, and anxiety; Z79.60 Long term (current) use of unspecified immunomodulators and immunosuppressants; Z79.01 Long term (current) use of anticoagulants; R00.0 Tachycardia, unspecified; R94.31 Abnormal electrocardiogram [ECG] [EKG]; M62.9 Disorder of muscle, unspecified; N13.39 Other hydronephrosis
CPT/HCPCS: 31500; 36415; 36430; 36556; 36600; 51702; 70450; 71045; 71275; 74177; 80053; 81001; 82375; 82805; 82948; 83050; 83605; 83735; 83880; 85018; 85025; 85610; 85730; 86140; 86850; 86900; 86901; 86923; 87040; 87077; 87086; 87147; 87186; 87637; 87641; 93005; 94002; 96361; 96365; 96366; 96367; 96368; 96375; 99291; A9270; C1751; J1720; J1836; J1956; J2470; J3010; J3373; J7050; J7120; P9016; Q9967